=== PATIENT | female | born 1955 | race Caucasian/White ===

== ENCOUNTER 2017-03-05 14:13 | Emergency (ER) | payer MEDICARE, MEDICAID ==
--- NOTE | 2017-03-05 15:17 | UC ---
Lower Extremity/Ankle HPI - HPI Summary HPI Summary: 62 YEAR OLD FEMALE PRESENTS WITH COMPLAINS OF LEFT ANKLE PAIN/SWELLING SECONDARY TO FALL. - History of Current Complaint Chief Complaint: UCLowerExtremity Stated Complaint: ANKLE INJURY Time Seen by Provider: 03/05/17 15:15 Hx Obtained From: Family/Production Control Expert Hx Last Menstrual Period: Periods no longer. Onset/Duration: Sudden Onset Severity Initially: Moderate Severity Currently: Moderate Pain Scale Used: 0-10 Numeric - 6 Aggravating Factor(s): Standing, Ambulation Alleviating Factor(s): Rest, Elevation Able to Bear Weight: No - Allergies/Home Medications Allergies/Adverse Reactions: Allergies Allergy/AdvReac Type Severity Reaction Status Date / Time No Known Allergies Allergy Verified 10/30/15 17:57 PMH/Surg Hx/FS Hx/Imm Hx Previously Healthy: Yes Other History Of: Negative For: HIV, Hepatitis B, Hepatitis C - Surgical History Surgical History: Yes Surgery Procedure, Year, and Place: APPENDECTOMY 1978, rt ventral [place] - Family History Known Family History: Positive: Unknown - Social History Alcohol Use: None Substance Use Type: None Smoking Status (MU): Never Smoked Tobacco - Immunization History Most Recent Influenza Vaccination: 2014 Review of Systems Constitutional: Negative Skin: Negative Eyes: Negative ENT: Negative Respiratory: Negative Cardiovascular: Negative Gastrointestinal: Negative Genitourinary: Negative Motor: Negative Neurovascular: Negative Musculoskeletal: Other: - LEFT ANKLE PAIN/SWELLING Neurological: Negative Psychological: Negative All Other Systems Reviewed And Are Negative: Yes Physical Exam Triage Information Reviewed: Yes Vital Signs: Initial Vital Signs Temp 36.4 C 03/05/17 15:00 Pulse 56 03/05/17 15:00 Resp 16 03/05/17 15:00 BP 104/61 03/05/17 15:00 Pulse Ox 100 03/05/17 15:00 Vital Signs Reviewed: Yes Eye Exam: Normal ENT Exam: Normal Dental Exam: Normal Neck exam: Normal Neck: Positive: 1 Respiratory Exam: Normal Cardiovascular Exam: Normal Abdominal Exam: Normal Musculoskeletal: Positive: Strength Limited @, ROM Limited @, Other: - LEFT ANKLE PAIN/SWELLING Neurological Exam: Normal Psychological Exam: Normal Skin Exam: Normal Lower Extremity Course/Dx - Differential Dx/Diagnosis Provider Diagnoses: LEFT ANKLE SPRAIN Discharge - Discharge Plan Condition: Stable Disposition: HOME Prescriptions: Meloxicam(NF) [Mobic(NF)] 7.5 mg PO BID #30 tab Patient Education Materials: Ankle Sprain (ED), Foot Sprain (ED) Referrals: Candice Maharaj MD [Medical Doctor] -
--- NOTE | 2017-03-05 15:44 | RAD ---
HISTORY: Fall, left ankle and foot pain COMPARISONS: February 12, 2014 VIEWS: 6, Frontal, lateral, and oblique views of the left ankle and of the left foot FINDINGS: BONE DENSITY: Normal. BONES: There is no displaced fracture. JOINTS: There is advanced osteoarthritis of the tibiotalar and fibulotalar articulations. This is similar to the previous examination. There is osteoarthritis of the subtalar joint and of the first MTP joint. ALIGNMENT: There is hallux valgus. SOFT TISSUES: Unremarkable. OTHER FINDINGS: None. IMPRESSION: 1. ADVANCED OSTEOARTHRITIS OF THE ANKLE. 2. OSTEOARTHRITIS OF THE FOOT. 3. HALLUX VALGUS. 4. NO ACUTE OSSEOUS INJURY. IF SYMPTOMS PERSIST, RECOMMEND REPEAT IMAGING
[2017-03-05 17:25] VITALS: BP 113/59
== END 2017-03-05 16:25 | disposition home or self-care (01) ==
LOC: UCEAST 14:13
DX: S93.402A Sprain of unspecified ligament of left ankle, initial encounter (principal); W19.XXXA Unspecified fall, initial encounter; Y93.9 Activity, unspecified; Y92.9 Unspecified place or not applicable
CPT/HCPCS: 99213; G0463

== ENCOUNTER → 2017-06-23 19:51 | Emergency (ER) | payer MEDICARE, MEDICAID ==
[~2017-06-23 19:51] MED LIST: Famotidine IV* 10 MG/ML 2 ML (20 mg) IV ONE; Ondansetron INJ* 2 MG/ML VIAL IV ONE
[2017-06-23 20:34] LABS: Hematocrit 35 % (35-47); Mean Corpuscular HGB Conc 34 g/dl (31-36); Mean Corpuscular Hemoglobin 37 pg (27-31); Mean Platelet Volume 8 um3 (7.4-10.4); Red Blood Count 3.25 10^6/ul (4.0-5.4); Red Cell Distribution Width 14 % (10.5-15); White Blood Count 3.6 10^3/ul (3.5-10.8)
[2017-06-23 20:35] LABS: Comments Flag Yes
[2017-06-23 20:36] LABS: Mean Corpuscular Volume 107 fL (80-97)
[2017-06-23 20:48] LABS: ALT 13 U/L (7-52); AST 16 U/L (13-39); Albumin 3.2 g/dL (3.2-5.2); Alkaline Phosphatase 89 U/L (34-104); Amylase 121 U/L (29-103); Anion Gap 4 mmol/L (2-11); BUN/Creatinine Ratio 32.7 (8-20); Blood Urea Nitrogen 32 mg/dL (6-24); C Reactive Protein < 1.00 mg/L (< 5.00); CO2 Carbon Dioxide 29 mmol/L (22-32); Calcium 8.9 mg/dL (8.6-10.3); Chloride 106 mmol/L (101-111); EGFR African American 74.5 (>60); EGFR Non-African American 57.9 (>60); Globulin 3.5 g/dL (2-4); Glucose 95 mg/dL (70-100); Lipase 21 U/L (11.0-82.0); Magnesium 2.3 mg/dL (1.9-2.7); Potassium 4.6 mmol/L (3.5-5.0); Sodium 139 mmol/L (133-145); Total Protein 6.7 g/dL (6.4-8.9)
[2017-06-23 20:49] LABS: Troponin I 0.02 ng/mL (<0.04)
--- NOTE | 2017-06-23 20:49 | RAD ---
INDICATION: Chest pain. COMPARISON: Comparison is made with a prior study from November 06, 2015. TECHNIQUE: A portable view of the chest was obtained. FINDINGS: Cardiac and mediastinal contours appear to be within normal limits. The lungs are clear. No pleural effusion is seen. IMPRESSION: NO EVIDENCE FOR ACUTE DISEASE.
--- NOTE | 2017-06-23 21:08 | ED ---
Glenn Brower Rebecca, scribed for Sally Dudley MD on 06/23/17 at 2014 . Abdominal Pain/Female - HPI Summary HPI Summary: Pt is a 62 y/o F BIBA who presents to ED c/o abdominal pain. Mobile Ui Designer reports that sx began at approximately 1630 after possibly having a soda. She was given Mylanta at 1630 which improved symptoms. She was then able to eat dinner and about 1 hour after, the pain began radiating outwards. Currently, pain is moderate, ranked 6/10, located in the epigastric region with radiation to the chest. Additionally c/o nausea and SOB. Denies V/D, diaphoresis. PMHx GERD. - History of Current Complaint Chief Complaint: EDAbdPain Stated Complaint: NAUSEA/VOMITING Time Seen by Provider: 06/23/17 19:59 Hx Obtained From: Family/Mobile Ui Designer - Mobile Ui Designer Hx Last Menstrual Period: Periods no longer. Onset/Duration: Lasting Hours, Still Present Severity Currently: Moderate Pain Intensity: 6 Pain Scale Used: 0-10 Numeric Location: Epigastric Radiates: Yes Radiates to: Chest Aggravating Factor(s): Food Alleviating Factor(s): Medications - Mylanta Associated Signs and Symptoms: Positive: Nausea. Negative: Diaphoresis, Vomiting, Diarrhea Allergies/Adverse Reactions: Allergies Allergy/AdvReac Type Severity Reaction Status Date / Time No Known Allergies Allergy Verified 10/30/15 17:57 PMH/Surg Hx/FS Hx/Imm Hx Endocrine/Hematology History: Reports: Hx Thyroid Disease - hypo Denies: Hx Diabetes Cardiovascular History: Denies: Hx Congestive Heart Failure, Hx Deep Vein Thrombosis, Hx Hypertension , Hx Myocardial Infarction, Hx Pacemaker/ICD Respiratory History: Reports: Hx Seasonal Allergies, Hx Sleep Apnea - DX 2010 NO CPAP MILD Denies: Hx Asthma, Hx Chronic Obstructive Pulmonary Disease (COPD), Hx Lung Cancer GI History: Reports: Hx Gastroesophageal Reflux Disease, Other GI Disorders - GERD Denies: Hx Gall Bladder Disease, Hx Gastrointestinal Bleed, Hx Ulcer, Hx Urosepsis History: Denies: Hx Kidney Stones, Hx Renal Disease Musculoskeletal History: Reports: Hx Arthritis - OSTEO Sensory History: Reports: Hx Contacts or Glasses - GLASSES, Hx Hearing Problem Denies: Hx Hearing Aid Opthamlomology History: Reports: Hx Contacts or Glasses - GLASSES Neurological History: Reports: Hx Developmental Delay, Other Neuro Impairments/ Disorders - DOWN SYNDROME Denies: Hx Dementia, Hx Migraine, Hx Seizures, Hx Transient Ischemic Attacks (TIA) Psychiatric History: Reports: Hx Anxiety, Hx Community Mental Health Tx Denies: Hx Depression, Hx Schizophrenia, Hx Bipolar Disorder - Cancer History Hx Chemotherapy: No Hx Radiation Therapy: No - Surgical History Surgery Procedure, Year, and Place: APPENDECTOMY 1978, rt ventral [place] Hx Anesthesia Reactions: No - Immunization History Date of Influenza Vaccine: 03/2017 Immunizations Up to Date: Yes Infectious Disease History: No Infectious Disease History: Denies: Hx Clostridium Difficile, Hx Hepatitis, Hx Human Immunodeficiency Virus (HIV), Hx of Known/Suspected MRSA, Hx Shingles, Hx Tuberculosis, Hx Known/ Suspected VRE, Hx Known/Suspected VRSA, History Other Infectious Disease, Traveled Outside the [place] in Last 30 Days - Family History Known Family History: Positive: Unknown - Secondary to Down Syndrome - Social History Lives: Care Home Alcohol Use: None Hx Substance Use: No Substance Use Type: Reports: None Hx Tobacco Use: No Smoking Status (MU): Never Smoked Tobacco Review of Systems Negative: Skin Diaphoresis Positive: Shortness Of Breath Positive: Abdominal Pain, Nausea. Negative: Vomiting, Diarrhea All Other Systems Reviewed And Are Negative: Yes Physical Exam - Summary Physical Exam Summary: VITAL SIGNS: Reviewed. GENERAL: ~Patient is a well-developed and nourished female who is lying comfortable in the stretcher. Patient is not in any acute respiratory distress. HEAD AND FACE: No signs of trauma. No ecchymosis, hematomas or skull depressions. No sinus tenderness. EYES: PERRLA, EOMI x 2, No injected conjunctiva, no nystagmus. EARS: Hearing grossly intact. Ear canals and tympanic membranes are within normal limits. MOUTH: Oropharynx within normal limits. NECK: Supple, trachea is midline, no adenopathy, no JVD, no carotid bruit, no c- spine tenderness, neck with full ROM. CHEST: Symmetric, no tenderness at palpation LUNGS: Clear to auscultation bilaterally. No wheezing or crackles. CVS: Regular rate and rhythm, S1 and S2 present, no murmurs or gallops appreciated. ABDOMEN: Soft with epigastric tenderness. No signs of distention. No rebound no guarding, and no masses palpated. Bowel sounds are normal. EXTREMITIES: FROM in all major joints, no edema, no cyanosis or clubbing. NEURO: Alert. No acute neurological deficits. Speech is normal and follows commands. SKIN: Dry and warm Triage Information Reviewed: Yes Vital Signs On Initial Exam: Initial Vitals Temp Pulse Resp BP Pulse Ox 97.3 F 57 20 126/74 98 06/23/17 19:57 06/23/17 19:57 06/23/17 19:57 06/23/17 19:57 06/23/17 19:57 Vital Signs Reviewed: Yes Diagnostics - Vital Signs Vital Signs Temp Pulse Resp BP Pulse Ox 06/23/17 19:57 97.3 F 57 20 126/74 98 - Laboratory Result Diagrams: 06/23/17 20:20 06/23/17 20:20 Lab Statement: Any lab studies that have been ordered have been reviewed, and results considered in the medical decision making process. - Radiology CXR Xray Interpretation: No Acute Changes - NO EVIDENCE FOR ACUTE DISEASE. Dr. Dudley reviewed radiology report. Radiology Interpretation Completed By: Radiologist - EKG 2034 Cardiac Rate: NL EKG Rhythm: Sinus Rhythm EKG Interpretation: 55 bpm. Normal axis. Normal interval. No ischemic changes. Re-Evaluation - Re-Evaluation First Eval Re-Evaluation Time: 21:04 Change: Improved Comment: Pt is doing significantly better, she has no pain and is not nauseous. Abdominal Pain Fem Course/Dx - Course Course Of Treatment: Pt is a 62 y/o F BIBA who presents to ED c/o epigastric abdominal pain that radiates to the chest since 1630, worsened by dinner, improved by Mylanta. Additionally c/o nausea and SOB. Denies V/D, diaphoresis. PMHx GERD. In the ED course, pt was given Zofran and Mylanta which improved symptoms. On re-evaluation she is no longer in pain or nauseous. She will be D/ C to home with Dx of acid reflux. She and her caregiver are agreeable with this plan. - Diagnoses Provider Diagnoses: Acid reflux Discharge - Discharge Plan Condition: Stable Disposition: HOME Patient Education Materials: Gastroesophageal Reflux Disease (ED) Referrals: Norma Price MD [Primary Care Provider] - Additional Instructions: RETURN TO EMERGENCY DEPARTMENT FOR ANY NEW OR WORSENING SYMPTOMS The documentation as recorded by the Glenn dietz Rebecca accurately reflects the service I personally performed and the decisions made by me, Sally Dudley MD.
[2017-06-23 21:14] VITALS: BP 102/58
== END | disposition home or self-care (01) ==
LOC: ED 19:51
DX: K21.9 Gastro-esophageal reflux disease without esophagitis (principal); R11.0 Nausea; R10.9 Unspecified abdominal pain; R06.02 Shortness of breath
CPT/HCPCS: 36415; 71010; 80053; 82150; 83690; 83735; 83880; 84484; 85025; 85610; 85730; 86140; 93005; 96374; 99282